=== PATIENT | female | born 1980 | race African-American/Black ===

== ENCOUNTER 2018-09-17 00:48 | Inpatient (IN) ==
[2018-09-17 01:26] LABS: Apearance,Urine Slightly Hazy (Clear); Bacteria,Urine Many /HPF (Few); Bilirubin,Urine Negative (Negative); Blood, Urine Negative (Negative); Glucose,Urine (UA) Negative (Negative); Ketones,Urine 20 mg/dL (Negative); Mucus,Urine Occasional /LPF (Occasional); Nitrite,Urine Negative (Negative); Protein,Urine Negative; Squamous Epithelial Cell,Urine Occasional /HPF (0-10); Urine Color Yellow (Yellow); Urine Specific Gravity 1.014 (1.001-1.035); Urine Urobilinogen < 2.0 EU/DL (0.2-1.0); WBC,Urine 3 /HPF (0-6)
[2018-09-17] MEDS ORDERED: AMPICILLIN INJ 2,000 MG in SODIUM CHLORIDE 0.9% 100 ML IV ONE (02:14)
[2018-09-17] MEDS: LACTATED RINGERS 1,000 ML IV SCH ×2 (02:40→06:53)
[2018-09-17] MEDS ORDERED: ONDANSETRON 4 MG/2 ML VIAL IV PRN (09:17)
[2018-09-17] MEDS ORDERED: MEPERIDINE 50 MG/1 ML VIAL IV PRN (09:17)
[2018-09-17] MEDS ORDERED: LACTATED RINGERS 1,000 ML IV SCH (09:30)
[2018-09-17] MEDS ORDERED: OXYTOCIN/LR 20 UNIT/1,000 ML BAG IV SCH (09:30)
[2018-09-17 09:38] LABS: Basophils % 0.3 % (0.0-0.8); Eosinophils # 0.1 10*3/uL (0.0-0.87); Eosinophils % 0.8 % (0.00-10.9); Hemoglobin 8.5 GM/DL (12.0-16.0); Immature Granulocytes % 0.3 %; Immature Granulocytes Absolute 0.02 #; Lymphocytes # 1.6 10*3/uL (1.4-4.0); Lymphocytes % 27.1 % (21.3-54.2); Mean Corpuscular HGB Conc 30.4 GM/DL (32-36); Mean Corpuscular Hemoglobin 25 PG (27-34); Mean Corpuscular Volume 81.2 FL (87-102); Mean Platelet Volume 11.2 FL (9.6-12.0); Monocytes # 0.6 10*3/uL (0.11-0.8); Monocytes % 9.4 % (1.7-12.7); Neutrophils # 3.7 10*3/uL (1.4-7.4); Neutrophils % 62.1 % (38.7-73.9); Platelet Count 230 T/CUMM (130-400); Red Blood Count 3.45 MC/CUMM (3.8-5.5); Red Cell Distribution Width 15.9 % (9.3-17.3)
[2018-09-17] MEDS ORDERED: miSOPROStol 200 MCG TABLET ONE (13:51)
[2018-09-17] MEDS ORDERED: LIDOCAINE 1% 50 ML VIAL ONE (13:51)
[2018-09-17] MEDS ORDERED: METHYLERGONOVINE 0.2 MG/1 ML AMP ONE (13:52)
[2018-09-17 14:42] LABS: Cord Arterial Blood HCO3 25.1 MMOL/L
[2018-09-17 14:44] LABS: Cord Venous Blood HCO3 22.6 MMOL/L; Cord Venous Blood PCO2 41.3 MMHG; Cord Venous Blood PO2 16.7
[2018-09-17] MEDS ORDERED: WITCH HAZEL PADS 100/JAR TOP PRN (16:54)
[2018-09-17] MEDS ORDERED: IBUPROFEN 800 MG TABLET PO PRN (16:54)
[2018-09-17] MEDS ORDERED: oxyCODONE/ACETAMINOPHEN 5-325 MG TABLET PO PRN ×2 (16:54)
[2018-09-17] MEDS ORDERED: BENZOCAINE 20%/MENTHOL 0.5% SPRAY 56 GM CAN TOP PRN (16:54)
[2018-09-17] MEDS ORDERED: HYDROCORTISONE 2.5% RECTAL CREAM 30 GM TUBE TOP PRN (16:54)
[2018-09-17] MEDS ORDERED: RHO(D) IMMUNE GLOBULIN 300 MCG SYRINGE IM ONE (16:54)
[2018-09-17] MEDS ORDERED: LANOLIN 50% CREAM 0.3 OZ TUBE TOP PRN (16:54)
[2018-09-17] MEDS ORDERED: ACETAMINOPHEN/CODEINE 300-30 MG TABLET PO PRN (16:54)
[2018-09-17] MEDS ORDERED: ACETAMINOPHEN 325 MG TABLET PO PRN (16:54)
[2018-09-17] MEDS ORDERED: MEASLES/MUMPS/RUBELLA VACCINE 0.5 ML VIAL SUBCUT ONE (16:54)
[2018-09-17] MEDS ORDERED: BISACODYL 10 MG SUPP RECTAL PRN (16:54)
[2018-09-17] MEDS ORDERED: DIPH/TET/ACEL PERT BOOSTER VACCINE 0.5 ML VIAL IM ONE (16:54)
[2018-09-17] MEDS: FERROUS SULFATE 325 MG TABLET PO SCH (20:56)
[2018-09-17] MEDS: DOCUSATE SODIUM 100 MG CAPSULE PO SCH (20:56)
[2018-09-18 06:06] LABS: Basophils % 0.2 % (0.0-0.8); Eosinophils # 0.1 10*3/uL (0.0-0.87); Eosinophils % 0.6 % (0.00-10.9); Hematocrit 28.3 VOL% (35.7-47.0); Hemoglobin 8.6 GM/DL (12.0-16.0); Immature Granulocytes % 0.3 %; Immature Granulocytes Absolute 0.04 #; Lymphocytes # 2.1 10*3/uL (1.4-4.0); Lymphocytes % 17.7 % (21.3-54.2); Mean Corpuscular HGB Conc 30.4 GM/DL (32-36); Mean Corpuscular Hemoglobin 25 PG (27-34); Mean Corpuscular Volume 81.1 FL (87-102); Mean Platelet Volume 11.6 FL (9.6-12.0); Monocytes # 1.1 10*3/uL (0.11-0.8); Monocytes % 9.5 % (1.7-12.7); Neutrophils # 8.3 10*3/uL (1.4-7.4); Neutrophils % 71.7 % (38.7-73.9); Platelet Count 228 T/CUMM (130-400); Red Blood Count 3.49 MC/CUMM (3.8-5.5); Red Cell Distribution Width 15.7 % (9.3-17.3); White Blood Count 11.6 T/CUMM (4-12)
[2018-09-18] MEDS: DOCUSATE SODIUM 100 MG CAPSULE PO SCH ×2 (08:32→21:38)
[2018-09-18] MEDS: FERROUS SULFATE 325 MG TABLET PO SCH ×2 (08:32→21:38)
[2018-09-19 07:22] VITALS: BP 97/56
[2018-09-19] MEDS: DOCUSATE SODIUM 100 MG CAPSULE PO SCH (08:43)
[2018-09-19] MEDS: FERROUS SULFATE 325 MG TABLET PO SCH (08:43)
== END 2018-09-19 12:00 | disposition home or self-care (01) | DRG 807 ==
LOC: N.LDOUT 00:48 → N.LD 00:55 → N.OB 16:41
PROVIDERS: ADMIT Obstetrics & Gynecology; ATTEND Obstetrics & Gynecology